=== PATIENT | female | born 1970 | race Caucasian/White ===

== ENCOUNTER 2018-03-12 11:28 | Inpatient (IN) | payer OTHER ==
[~2018-03-12] VITALS: Ht 167.6 cm; Wt 113.4 kg
[2018-03-12 12:22] LABS: BASOPHILS % 0.5 % (0.0-2.0); EOSINOPHILS % 3.7 % (0.0-5.0); HEMATOCRIT. 39.7 % (36.0-48.0); HEMOGLOBIN. 13.4 g/dL (12.0-16.0); LYMPHOCYTES % 23.2 % (20.0-50.0); MEAN CORPUSCULAR HEMOGLOBIN 29.5 pg (28.0-32.0); MEAN PLATELET VOLUME 8.8 fl (7.4-10.4); MONOCYTES % 5.8 % (2.0-8.0); NEUTROPHILS % 66.8 % (40.0-76.0); PLATELET 308 x1000/uL (130-400); RED BLOOD CELL COUNT 4.56 mill/uL (4.2-5.4); RED CELL DISTRIBUTION WIDTH 14.5 % (11.6-14.6)
[2018-03-12 12:27] LABS: CHLORIDE 103 mEq/L (98-107)
[2018-03-12 12:28] LABS: PROTHROMBIN TIME 10.2 sec (9.4-11.6)
[2018-03-12] MEDS ORDERED: IPRATROPIUM BROMIDE (0.02%) 0.5MG/2.5ML NEB HHN STA (12:58)
[2018-03-12] MEDS ORDERED: ALBUTEROL (0.083%) 2.5MG/3ML NEB HHN STA (12:58)
[2018-03-12] MEDS ORDERED: PREDNISONE 20MG TABLET PO STA (12:58)
[2018-03-12] MEDS ORDERED: KETOROLAC 30MG/ML VIAL IV ONE (13:00)
[2018-03-12] MEDS ORDERED: ALBUTEROL (0.5%) 2.5MG/0.5ML NEB HHN ONE (13:29)
[2018-03-12] MEDS ORDERED: ASPIRIN 325MG EC TABLET PO ONE (15:30)
[2018-03-12] MEDS ORDERED: DIPHENHYDRAMINE 50MG/ML VIAL IV PRN (16:15)
[2018-03-12] MEDS ORDERED: MAGNESIUM/ALUMINUM HYDROXIDE/SIMETHICONE 30ML UDC PO PRN (16:15)
[2018-03-12] MEDS ORDERED: ACETAMINOPHEN 650MG/20.3ML UDC GT PRN (16:15)
[2018-03-12] MEDS ORDERED: HYDROCODONE/ACETAMINOPHEN 10/325MG TABLET PO PRN (16:15)
[2018-03-12] MEDS ORDERED: ACETAMINOPHEN 650MG SUPP PR PRN (16:15)
[2018-03-12] MEDS ORDERED: GUAIFENESIN 200MG/10ML SUGAR FREE UDC PO PRN (16:15)
[2018-03-12] MEDS ORDERED: DOCUSATE SODIUM 100MG CAPSULE PO PRN (16:15)
[2018-03-12] MEDS ORDERED: CLONIDINE 0.1MG TABLET PO PRN ×3 (16:15→16:45)
[2018-03-12] MEDS ORDERED: HYDROCODONE/ACETAMINOPHEN 5/325MG TABLET PO PRN (16:15)
[2018-03-12] MEDS ORDERED: ONDANSETRON HCL 4MG/2ML VIAL IV PRN (16:15)
[2018-03-12] MEDS ORDERED: NA PHOS,M-B/NA PHOS,DI-BA ENEMA 118ML PR PRN (16:15)
[2018-03-12] MEDS ORDERED: ENOXAPARIN 40MG/0.4ML SYR SUBCUT NR (19:00)
[2018-03-12 20:07] LABS: *AMPHETAMINES SCREEN URINE NEGATIVE (NEGATIVE)
[2018-03-12 20:08] LABS: *BARBITURATES SCREEN URINE NEGATIVE (NEGATIVE); *BENZODIAZEPINES SCREEN URINE NEGATIVE (NEGATIVE); *COCAINE SCREEN URINE NEGATIVE (NEGATIVE); CANNABINOID URINE SCREEN NEGATIVE (NEGATIVE); METHADONE URINE SCREEN NEGATIVE (NEGATIVE); OPIATES URINE SCREEN NEGATIVE (NEGATIVE); PHENCYCLIDINE URINE SCREEN NEGATIVE (NEGATIVE)
[2018-03-12] MEDS: ACETAMINOPHEN 325MG TABLET PO PRN (21:30)
[2018-03-12] MEDS: LOSARTAN POTASSIUM 25 MG TABLET PO SCH (21:30)
[2018-03-12] MEDS: SODIUM CHLORIDE 0.9% INJ 3ML FLUSH IVF SCH (21:31)
[2018-03-12] MEDS: AMLODIPINE 2.5MG TABLET PO SCH (21:31)
[2018-03-12 21:35] VITALS: BP 122/70
[2018-03-12] MEDS ORDERED: METF10004 PO (21:56)
[2018-03-12] MEDS ORDERED: TOPI25CA2 PO (21:56)
[2018-03-12] MEDS ORDERED: DEXTROSE 50% WATER 50ML SYRINGE IV PRN (22:30)
[2018-03-12] MEDS ORDERED: MEDICATION NOT ON FORMULARY EA (Metformin Hcl 1 TAB) PO SCH (23:45)
[2018-03-12] MEDS ORDERED: TOPIRAMATE 25 MG PO SCH (23:45)
[2018-03-12] MEDS: METFORMIN HCL 500MG TABLET PO SCH (23:45)
[2018-03-13] VITALS (7 sets, daily range): BP systolic 100–122; BP diastolic 57–73
[2018-03-13] MEDS: TOPIRAMATE 25MG TABLET PO SCH ×3 (00:49→17:05)
[2018-03-13] MEDS: SODIUM CHLORIDE 0.9% INJ 3ML FLUSH IVF SCH ×3 (05:20→20:53)
[2018-03-13 06:41] LABS: BASOPHILS % 0.4 % (0.0-2.0); EOSINOPHILS % 1.1 % (0.0-5.0); HEMATOCRIT. 37.8 % (36.0-48.0); HEMOGLOBIN. 12.9 g/dL (12.0-16.0); LYMPHOCYTES % 21.8 % (20.0-50.0); MEAN CORPUSCULAR HEMOGLOBIN 29.7 pg (28.0-32.0); MEAN CORPUSCULAR VOLUME 86.7 fL (81.0-99.0); MEAN PLATELET VOLUME 9.4 fl (7.4-10.4); MONOCYTES % 8.1 % (2.0-8.0); NEUTROPHILS % 68.6 % (40.0-76.0); PLATELET 306 x1000/uL (130-400); RED BLOOD CELL COUNT 4.36 mill/uL (4.2-5.4); RED CELL DISTRIBUTION WIDTH 14.4 % (11.6-14.6)
[2018-03-13] MEDS: BLOOD SUGAR DIAGNOSTIC STRIP TEST SCH ×4 (06:48→20:19)
[2018-03-13 07:30] LABS: CHLORIDE 107 mEq/L (98-107)
[2018-03-13] MEDS: IPRATROPIUM/ALBUTEROL 0.5-3(2.5)MG/3ML NEB INH PRN ×2 (07:50→12:08)
[2018-03-13] MEDS: INSULIN LISPRO 100 UNITS/ML SUBCUT SCH ×4 (07:50→20:18)
[2018-03-13] MEDS: METFORMIN HCL 500MG TABLET PO SCH ×2 (08:14→17:05)
[2018-03-13] MEDS: ASPIRIN 81MG EC TABLET PO SCH (08:14)
[2018-03-13] MEDS: LOSARTAN POTASSIUM 25 MG TABLET PO SCH ×2 (08:14→20:18)
[2018-03-13] MEDS: ENOXAPARIN 30MG/0.3ML SYR SUBCUT SCH ×2 (08:15→20:19)
[2018-03-13] MEDS: AMLODIPINE 2.5MG TABLET PO SCH ×2 (08:15→20:18)
[2018-03-13 08:19] LABS: LDL CHOLESTEROL 110 mg/dL (5-100)
[2018-03-13 08:20] LABS: CREATINE KINASE 57 IU/L (26-192); CREATINE KINASE MB FRACTION < 0.5 ng/mL (0.5-3.6)
[2018-03-13 08:21] LABS: HDL CHOLESTEROL 55 mg/dL (40-59)
[2018-03-13] MEDS ORDERED: REGADENOSON 0.4 MG/5 ML IV NR (10:45)
[2018-03-13] MEDS ORDERED: POTASSIUM CHLORIDE 20MEQ TABLET SR PO NR (10:45)
[2018-03-13] MEDS: ACETAMINOPHEN 325MG TABLET PO PRN (12:23)
[2018-03-13 15:01] LABS: UCG SCREEN NEGATIVE
[2018-03-14 04:00] VITALS: BP 113/65
[2018-03-14] MEDS: ACETAMINOPHEN 325MG TABLET PO PRN (05:43)
[2018-03-14] MEDS: IPRATROPIUM/ALBUTEROL 0.5-3(2.5)MG/3ML NEB INH PRN (05:44)
[2018-03-14] MEDS: SODIUM CHLORIDE 0.9% INJ 3ML FLUSH IVF SCH ×2 (05:45→14:18)
[2018-03-14] MEDS: BLOOD SUGAR DIAGNOSTIC STRIP TEST SCH ×2 (06:37→12:20)
[2018-03-14 06:40] LABS: BASOPHILS % 0.8 % (0.0-2.0); EOSINOPHILS % 6.3 % (0.0-5.0); HEMATOCRIT. 39.7 % (36.0-48.0); HEMOGLOBIN. 13.3 g/dL (12.0-16.0); LYMPHOCYTES % 42.7 % (20.0-50.0); MEAN CORPUSCULAR HEMOGLOBIN 29.6 pg (28.0-32.0); MEAN CORPUSCULAR VOLUME 88.3 fL (81.0-99.0); MEAN PLATELET VOLUME 9.2 fl (7.4-10.4); MONOCYTES % 6.2 % (2.0-8.0); PLATELET 287 x1000/uL (130-400); RED CELL DISTRIBUTION WIDTH 14.7 % (11.6-14.6)
[2018-03-14 06:52] LABS: CHLORIDE 106 mEq/L (98-107)
[2018-03-14] MEDS: METFORMIN HCL 500MG TABLET PO SCH (07:50)
[2018-03-14] MEDS: INSULIN LISPRO 100 UNITS/ML SUBCUT SCH ×2 (07:50→12:50)
[2018-03-14 08:00] VITALS: BP 118/73
[2018-03-14] MEDS: AMLODIPINE 2.5MG TABLET PO SCH (09:00)
[2018-03-14] MEDS: LOSARTAN POTASSIUM 25 MG TABLET PO SCH (09:00)
[2018-03-14] MEDS: TOPIRAMATE 25MG TABLET PO SCH (09:33)
[2018-03-14] MEDS: ENOXAPARIN 30MG/0.3ML SYR SUBCUT SCH (09:33)
[2018-03-14] MEDS: ASPIRIN 81MG EC TABLET PO SCH (09:33)
[2018-03-14] MEDS ORDERED: REGADENOSON 0.4 MG/5 ML IV ONE (10:12)
[2018-03-14 12:00] VITALS: BP 142/79
[2018-03-14 14:35] VITALS: BP 140/75
== END 2018-03-14 17:31 | disposition home or self-care (01) | DRG 311 ==
LOC: ER 15:13 → 6WST 15:41 → ENRESERV 19:35
PROVIDERS: ADMIT Family Medicine; ATTEND Family Medicine
DX: I20.9 Angina pectoris, unspecified (principal); Z68.41 Body mass index [BMI] 40.0-44.9, adult; E11.9 Type 2 diabetes mellitus without complications; E87.6 Hypokalemia; E66.9 Obesity, unspecified; R00.0 Tachycardia, unspecified; I10 Essential (primary) hypertension; H54.61 Unqualified visual loss, right eye, normal vision left eye; J45.909 Unspecified asthma, uncomplicated; Z97.0 Presence of artificial eye
CPT/HCPCS: 36415; 71045; 78452; 80053; 80061; 80305; 81025; 82550; 82553; 82962; 83036; 83735; 83880; 84443; 84484; 85025; 85379; 85610; 93005; 93017; 93306; 93970; A9500; J1650; J1885; J2785; J7512; J7611; J7620